=== PATIENT | male | born 1945 | race American Indian/Alaskan Native ===

== ENCOUNTER 2018-12-14 15:14 | Outpatient (CLI) | payer MEDICARE, OTHER ==
--- NOTE | 2018-12-14 16:21 | Ultrasound Report ---
RIGHT UPPER QUADRANT ABDOMINAL ULTRASOUND HISTORY: Abdominal pain. She recently had a CT abdomen at [facility] which was interpreted as sma ll gallstones versus calcification in the gallbladder wall. COMPARISON: No images available. TECHNIQUE: Multiple real-time ultrasonographic grayscale images were obtained of the abdomen. FINDINGS: Aorta: No significant abnormality. The aorta measures 2.3 cm maximum. IVC: No significant abnormality. Pancreas: Unremarkable. Liver: Normal size with mild homogeneous increased echogenicity compared to the kidney. No liver mass . Gallbladder: No stones, wall thickening or pericholecystic fluid. The gallbladder wall is relatively hyperechoic but there is no shadowing to suggest significant calcification of the gallbladder wall. Common bile duct: 6.3 mm. Right kidney: Normal except for a single 11 mm cyst in the inferior pole. The renal collecting system and ureter are nondilated. No mass or calculus. Additional findings: Negative Edwards sign and no ascites.. IMPRESSION: 1. No cholelithiasis and no signs of acute cholecystitis. 2. No gross calcification of the gallbladder wall. However, CT is better for assessing calcification of the gallbladder wall. 3. Mild increased liver echogenicity suggesting hepatic steatosis. However, no hepatomegaly. Signer Name: Tremayne Campos MD Signed: 12/14/2018 4:17 PM Workstation Name: [id number]
== END 2018-12-14 15:15 | disposition home or self-care (01) ==
LOC: EDSEX 15:14 → SPVWC 15:14
PROVIDERS: ATTEND Internal Medicine Gastroenterology
DX: R10.11 Right upper quadrant pain (principal)
CPT/HCPCS: 76705